=== PATIENT | female | born 1950 | race Caucasian/White ===

== ENCOUNTER → 2016-09-14 | Day surgery (SDC) | payer OTHER ==
[~2016-09-14] MED LIST: MIDAZOLAM 2 MG/2 ML VIAL ONE; fentaNYL 100 MCG/2 ML INJ ONE
--- NOTE | 2016-09-14 13:49 | GPN ---
[f rep st] PROCEDURE NOTE DATE OF PROCEDURE: 09/14/2016 PROCEDURES: Colonoscopy and biopsy, and argon plasma coagulation and destruction of tissue. INDICATIONS: History of 19 mm polyp removed from the ascending colon in piecemeal fashion in January of 2015, followup colonoscopy in June of 2015 at the [facility] revealed a small amount of residual adenomatous tissue at that site. This is to follow up that previous polypectomy site, and treat the area with the argon plasma coagulation. INFORMED CONSENT: I had a detailed discussed with the patient regarding the procedure, alternatives, benefits, and risks including bleeding, perforation, infection, risk of medication. Informed consent was signed and witnessed. COMPLICATIONS: None immediate. MEDICATIONS: Versed 8 mg IV, fentanyl 100 mcg IV. DESCRIPTION OF PROCEDURE: After adequate sedation, the patient remained in left lateral decubitus position, and I performed a visual and digital anorectal examination. The video colonoscope was inserted via the rectum and advanced under visualization into the cecum, identified by the ileocecal valve, appendiceal orifice, confluence of tinea. Retroflexed examination was performed in the cecum. On retroflex of the endoscope, there was a small 2 mm polyp located in the cecum that was removed in total by cold biopsy. The previous polypectomy site at the ascending colon was noted with Delfina ink on either area. There was mildly abnormal--appearing tissue at that site. Multiple biopsies were obtained. The area was then treated with argon plasma coagulation for tissue destruction. Good coagulation and tissue destruction were noted. The colonoscope was then slowly withdrawn, with careful attention paid to mucosal detail. There were no other polyps or masses noted. The retroflexed examination was performed. The endoscope was un-retroflexed and removed, confirming above findings. The patient tolerated the procedure well and was sent to recovery room in satisfactory condition. IMPRESSION: 1. 2 mm cecal polyp removed with cold biopsy. 2. Abnormal tissue at previous polypectomy site status post biopsy and argon plasma coagulation and destruction of any remaining polyp tissue. RECOMMENDATIONS: 1. Follow up pathology. 2. Avoid aspirin and nonsteroidal anti-inflammatory drugs for 10 days, except as using for cardiac or stroke prevention. Tylenol is fine to use. 3. If there is no residual adenomatous tissue, I would recommend colonoscopy in 3 years. If there is residual adenomatous tissue at the previous polypectomy site, I recommend colonoscopy in 1 year. 4. High-fiber diet. 5. Followup with primary care physician as scheduled. Thank you for allowing me to participate in the patient's healthcare. Do not hesitate to call me with any questions. /[id number]/MODL MTDD
== END | disposition home or self-care (01) ==
LOC: FSGY 10:47
PROVIDERS: ATTEND Internal Medicine Gastroenterology
PROC: 0DJD8ZZ Inspection of Lower Intestinal Tract, Via Natural or Artificial Opening Endoscopic (ICD-10-PCS; principal; 2016-09-14 12:15)
PROC: 0DBH8ZX Excision of Cecum, Via Natural or Artificial Opening Endoscopic, Diagnostic (ICD-10-PCS; principal; 2016-09-14 12:15)
PROC: 0D5H8ZZ Destruction of Cecum, Via Natural or Artificial Opening Endoscopic (ICD-10-PCS; principal; 2016-09-14 12:15)
DX: K63.5 Polyp of colon (principal); Z86.010 Personal history of colon polyps; Z83.71 Family history of colonic polyps
CPT/HCPCS: J2250; J3010

== ENCOUNTER → 2016-10-11 | Outpatient (CLI) | payer OTHER | LOC: FIMAGING 07:49 | PROVIDERS: ATTEND Internal Medicine | DX: Z12.31 Encounter for screening mammogram for malignant neoplasm of breast (principal) | CPT/HCPCS: G0202 ==

== ENCOUNTER 2017-09-20 10:34 | Day surgery (SDC) | payer OTHER ==
[2017-09-20] MEDS ORDERED: LIDOCAINE 1% 2 ML INJ ID PRN (11:05)
[2017-09-20] MEDS ORDERED: LR 1,000 ML IV ONE (11:05)
--- NOTE | 2017-09-20 12:12 | PDGENHP ---
History & Physical Chief Complaint: phx polyps History of Present Illness: phx polyps Pertinent Past, Social, Family History: FHx - dad with type 2hodgkins nocc but fhx polyps. no tobacco. alcohol 4/week Relevant Physical Exam: A+Ox3. CTA. S1S2. +BS, soft, nt Cardiorespiratory Assessment: class 1
--- NOTE | 2017-09-20 12:13 | PDPROPOC ---
Sedation Plan of Care Sedation Plan of Care: vital signs stable, mental status noted, patient educated of risks, benefits, alternatives, patient can tolerate sedation ASA Classification: ASA 1 Planned drugs: fentanyl, midazolam Mallampati Score: Class 1 Mallampati Reference Image: Patient passed 3-3-2 rule?: Yes
[2017-09-20] MEDS ORDERED: MIDAZOLAM 2 MG/2 ML VIAL ONE (12:15)
[2017-09-20] MEDS ORDERED: fentaNYL 100 MCG/2 ML INJ ONE (12:15)
--- NOTE | 2017-09-20 12:55 | GIREPORT ---
[facility] Surgical Services - Endoscopy Department Patient Name: Grecia Arce Procedure Date: 09/20/2017 12:05 PM Patient Type: Outpatient Attending MD/ ER Physician: Martha Morales Procedure: Colonoscopy Indications: Surveillance: Piecemeal removal of large sessile adenoma last colonosco py (< 3 yrs) Providers: Jasen Hargrove MD Referring MD: Karina Sanabrai Medicines: Fentanyl 100 micrograms IV, Midazolam 6 mg IV Complications: No immediate complications. Estimated blood loss: Minimal. Description of Procedure: After obtaining informed consent, the scope was passed under direct vis ion. Throughout the procedure, the patient's blood pressure, pulse, and oxyg en saturations were monitored continuously. The Colonoscope with irrigatio n channel was introduced through the anus and advanced to the terminal il eum, with identification of the appendiceal orifice and IC valve. The colono scopy was performed without difficulty. The patient tolerated the procedure w ell. The quality of the bowel preparation was good. Findings: The digital rectal exam was normal. The terminal ileum appeared normal. A post polypectomy scar was found in the ascending colon. The scar tiss ue was healthy in appearance. There was no evidence of the previous polyp. Biopsies were taken with a cold forceps for histology. Estimated blood loss was minimal. The exam was otherwise without abnormality. Estimated Blood Loss: Estimated blood loss was minimal. Post Op Diagnosis: - The examined portion of the ileum was normal. - Post-polypectomy scar in the ascending colon. Biopsied. - The examination was otherwise normal. Recommendation: - Await pathology results. - My office will call with the pathology result with 5-7 days. If you h ave not heard from my office by 12-14, do not assume the pathology is manuela l, please call [phone] to get the pathology results. - If the pathology report reveals no adenomatous tissue, then repeat th e colonoscopy for surveillance in 3 years. - If the pathology report reveals adenomatous tissue, then repeat the colonoscopy for surveillance in 1 year. - Resume previous diet. - Patient has a contact number available for emergencies. The signs and symptoms of potential delayed complications were discussed with the pat ient. Return to normal activities tomorrow. Written discharge instructions we re provided to the patient. - Patient medication history reviewed. Patient is appropriately not frandy ing any medications. - Discharge patient to home (ambulatory). - Return to referring physician as previously scheduled. - Thank you for allowing me to help in your patient's care. Do not hesi alba to call with any questions. Attending Participation: I personally performed the entire procedure. Delvin Aggarwal M.D Jasen Hargrove MD 09/20/2017 12:55:04 PM This report has been signed electronicallyMathew MD Delvin Number of Addenda: 0 Note Initiated On: 09/20/2017 12:05 PM Total Procedure Duration Time 0 hours 14 minutes 26 seconds [email or web address]
[2017-09-20 13:35] VITALS: BP 121/78
== END 2017-09-20 13:35 | disposition home or self-care (01) ==
LOC: FSGY 10:34
PROVIDERS: ATTEND Internal Medicine Gastroenterology
PROC: 0DBK8ZZ Excision of Ascending Colon, Via Natural or Artificial Opening Endoscopic (ICD-10-PCS; principal; 2017-09-20 12:00)
DX: Z12.11 Encounter for screening for malignant neoplasm of colon (principal); Z86.010 Personal history of colon polyps; Z78.0 Asymptomatic menopausal state
CPT/HCPCS: J2250; J3010

== ENCOUNTER → 2017-10-17 | Outpatient (CLI) | payer OTHER | END | disposition home or self-care (01) | LOC: FIMAGING 13:08 | PROVIDERS: ATTEND Internal Medicine | DX: Z12.31 Encounter for screening mammogram for malignant neoplasm of breast (principal) ==

== ENCOUNTER → 2017-11-20 | Outpatient (CLI) | payer OTHER | LOC: FIMAGING 09:21 | PROVIDERS: ATTEND Internal Medicine | DX: Z13.820 Encounter for screening for osteoporosis (principal); M85.89 Other specified disorders of bone density and structure, multiple sites; Z78.0 Asymptomatic menopausal state ==

== ENCOUNTER → 2018-10-16 | Outpatient (CLI) | payer OTHER | LOC: FIMAGING 08:52 ==